=== PATIENT | female | born 1985 | race Two or more races ===

== ENCOUNTER 2018-12-04 11:22 | Inpatient (IN) | payer MEDICAID ==
[~2018-12-04] VITALS: Ht 149.9 cm; Wt 67.1 kg
[2018-12-04 12:07] VITALS: BP 126/64
[2018-12-04] MEDS ORDERED: PREN1TAB58 PO (12:13)
[2018-12-04] MEDS ORDERED: IV RINGERS,LACTATED 1000ML 1,000 ML IV PRN (12:15)
[2018-12-04 12:52] LABS: BILIRUBIN,URINE NEGATIVE (NEG); CLARITY,URINE CLEAR; COLOR,URINE YELLOW; NITRITE,URINE NEGATIVE (NEG); PROTEIN,URINE NEGATIVE (NEG-TRACE); UROBILINOGEN,URINE 0.2 mg/dL (0.2 mg/dL)
[2018-12-04 13:03] LABS: AMPHETAMINE/METHAMPHETAMINE NEG (NEG); BARBITURATES NEG (NEG); BENZODIAZEPINES NEG (NEG); CANNABINOIDS NEG (NEG); COCAINE NEG (NEG); METHADONE NEG (NEG); OPIATES NEG (NEG); PHENCYCLIDINE NEG (NEG)
[2018-12-04 13:20] LABS: SQUAMOUS EPITHELIAL CELL,UR FEW /LPF
[2018-12-04 13:21] LABS: BACTERIA,URINE FEW /HPF (0-FEW); RBC,URINE OCC /HPF (0-2)
--- NOTE | 2018-12-04 13:32 | PDOC1 ---
OB - History Hx of Present Care: Good Care Ultrasounds: Normal mid trimester US Obstetrical Complications: None Medical Complications: None Past Family/Social History * Past Medical, Surgical, Family and Obstetric Histories reviewed from chart. Rubella: Immune RPR/VDRL: Negative GBS Status: Negative HBsAG: Negative OB - Chief Complaint & HPI Date of Admission: Date of Admission: Dec 04, 2018 at 11:22 Chief Complaint/History : 3 Para: 2 EGA: 39 Reason for admission: active labor Admission Nurse Assessment Rev: Yes OB - Admission Exam Physical Exam HEENT: Normal Heart: Regular Rate Lungs: Clear Abdomen: Gravid, Non tender, Soft Extremities: Edema Reflexes: Normal Cervical Dilatation: 3cm Effacement: Other (90%) Station: -1 Membranes: Intact Heart Rate: Normal Accelerations: Accelerations Present Contractions on Admission: < 5 Minutes Apart Intensity: Moderate Text A: 39 wks IUP Active labor P: Admit for labor management. HOSSEIN NORIEGA Jr, MD Dec 04, 2018 13:32
[2018-12-04] MEDS ORDERED: AMPICILLIN SODIUM 2 GM in IV NORMAL SALINE 100ML 100 ML IV ONE (14:00)
[2018-12-04] MEDS ORDERED: IV RINGERS,LACTATED 1000ML 1,000 ML IV SCH (14:04)
[2018-12-04] MEDS ORDERED: TERBUTALINE 1 MG/ML VIAL. SQ PRN (14:15)
[2018-12-04] MEDS ORDERED: 0.9 % SODIUM CHLORIDE 10 ML DISP.SYRIN. IV PRN ×2 (14:15→18:00)
[2018-12-04] MEDS ORDERED: LIDOCAINE 1% PF 30 ML VIAL. INJ PRN (14:15)
[2018-12-04] MEDS ORDERED: fentaNYL PF VIAL 100 MCG/2 ML VIAL IV PRN (14:15)
[2018-12-04] MEDS ORDERED: ONDANSETRON PF 4 MG/2 ML VIAL. IV PRN (14:15)
[2018-12-04] MEDS ORDERED: OXYTOCIN 30 UNIT/500 ML PREMIX 500 ML IV PRN ×2 (14:15→18:00)
[2018-12-04 14:30] LABS: BASO # 0.1 x10^3/uL (0.0-0.2); BASO % 1 % (0-3); EOS # 0.1 x10^3/uL (0.0-0.7); EOS % 1 % (0-3); HEMOGLOBIN 12.5 g/dL (12.0-15.5); LYMPH # 2.1 x10^3/uL (1.0-4.8); LYMPH % 17 % (24-48); MEAN CORPUSCULAR HEMOGLOBIN 29 pg (25-35); MEAN CORPUSCULAR HGB CONC 33 g/dL (31-37); MEAN CORPUSCULAR VOLUME 89 fL (79-100); MONO # 0.6 x10^3/uL (0.0-1.1); MONO % 5 % (0-9); NEUT # 9.8 x10^3uL (1.8-7.7); NEUT % 77 % (31-73); PLATELET COUNT 274 x10^3/uL (140-400); RED BLOOD COUNT 4.29 x10^6/uL (3.50-5.40); RED CELL DISTRIBUTION WIDTH 14.1 % (11.5-14.5); WHITE BLOOD COUNT 12.6 x10^3/uL (4.0-11.0)
--- NOTE | 2018-12-04 17:53 | PDOC ---
VAGINAL DELIVERY DATE DATE: 12/04/18 TIME: 17:51 : 3 Para: 3 EGA: 39 VAGINAL DELIVERY: VTX VACCUM ASSISTED: No PLACENTA: Spontaneous 8/9 SEX: Female WEIGHT Weight [ 5 lbs. 13 oz. ] Nuchal Cord: Yes Amniotic Fluid: Clear PAIN: Natural EPISIOTOMY: No EXTENSION: Yes (2nd degree midline laceration) REPAIRED WITH 2-0 vicryl EBL 300 ml COMPLICATIONS none CONDITION pt. stable Signs of Intrauterine Infectio: None Shoulder Dystocia: No HOSSEIN NORIEGA Jr, MD Dec 04, 2018 17:53
[2018-12-04] MEDS ORDERED: SIMETHICONE 80 MG TAB.CHEW PO PRN (18:00)
[2018-12-04] MEDS ORDERED: MMR per PROTOCOL. MC PRN (18:00)
[2018-12-04] MEDS ORDERED: oxyCODONE/APAP 5/325 1 TAB TABLET PO PRN (18:00)
[2018-12-04] MEDS ORDERED: MAGNESIUM HYDROXIDE 2,400 MG/30 ML ORAL.SUSP. PO PRN (18:00)
[2018-12-04] MEDS ORDERED: MAG HYDROX/ALUMINUM HYD/SIMETH 30 ML ORAL.SUSP PO PRN (18:00)
[2018-12-04] MEDS ORDERED: HYDROCORTISONE 1% TOPICAL OINTMENT 30GM TUBE. TP PRN (18:00)
[2018-12-04] MEDS ORDERED: AMPICILLIN SODIUM 1 GM in IV NORMAL SALINE 50ML 50 ML IV SCH (18:00)
[2018-12-04] MEDS ORDERED: diphenhydrAMINE HCL 25 MG CAPSULE PO PRN (18:00)
[2018-12-04] MEDS ORDERED: ACETAMINOPHEN 325 MG TABLET. PO PRN (18:00)
[2018-12-04] MEDS ORDERED: ZOLPIDEM 5 MG TABLET. PO PRN (18:00)
[2018-12-04] MEDS ORDERED: BENZOCAINE 20% TOPICAL AEROSOL SPRAY 57GM CAN. TP PRN (18:00)
[2018-12-04] MEDS ORDERED: PHENYLEPH/MINERAL OIL/PETROLAT RECTAL OINTMENT 28GM TUBE. RC PRN (18:00)
[2018-12-04] MEDS: IBUPROFEN 400 MG TABLET. PO PRN (19:18)
[2018-12-04 22:55] VITALS: BP 121/62
[2018-12-05 00:10] VITALS: BP 99/54
[2018-12-05 03:00] VITALS: BP 97/55
[2018-12-05 06:00] VITALS: BP 104/73
[2018-12-05 07:41] LABS: BASO # 0.1 x10^3/uL (0.0-0.2); BASO % 1 % (0-3); EOS # 0.1 x10^3/uL (0.0-0.7); EOS % 1 % (0-3); HEMATOCRIT 31.4 % (36.0-47.0); HEMOGLOBIN 10.2 g/dL (12.0-15.5); LYMPH # 3.2 x10^3/uL (1.0-4.8); LYMPH % 21 % (24-48); MEAN CORPUSCULAR HEMOGLOBIN 29 pg (25-35); MEAN CORPUSCULAR HGB CONC 33 g/dL (31-37); MEAN CORPUSCULAR VOLUME 89 fL (79-100); MONO # 0.7 x10^3/uL (0.0-1.1); MONO % 5 % (0-9); NEUT # 10.9 x10^3uL (1.8-7.7); NEUT % 73 % (31-73); PLATELET COUNT 237 x10^3/uL (140-400); RED BLOOD COUNT 3.51 x10^6/uL (3.50-5.40); WHITE BLOOD COUNT 15.1 x10^3/uL (4.0-11.0)
[2018-12-05] MEDS: DOCUSATE SODIUM 100 MG CAPSULE. PO PRN ×2 (10:12→17:05)
[2018-12-05] MEDS: FERROUS SULFATE 325 MG TABLET. PO SCH ×2 (10:12→17:05)
[2018-12-05] MEDS: IBUPROFEN 400 MG TABLET. PO PRN ×2 (10:13→17:05)
[2018-12-05 11:15] VITALS: BP 103/65
--- NOTE | 2018-12-05 14:00 | PDOC ---
Provider Note Provider Note No Complaints VV Uterus NTTP FU in AM THOR TUCKER MD Dec 05, 2018 14:00
[2018-12-05 15:20] VITALS: BP 105/61
[2018-12-05 19:30] VITALS: BP 114/69
[2018-12-06 05:30] VITALS: BP 113/71
[2018-12-06] MEDS: IBUPROFEN 400 MG TABLET. PO PRN (05:48)
[2018-12-06] MEDS: FERROUS SULFATE 325 MG TABLET. PO SCH (08:00)
--- NOTE | 2018-12-06 10:44 | NUR ---
Feosul not given due to Hct 31.4
[2018-12-06 11:00] VITALS: BP 117/67
--- NOTE | 2018-12-06 12:26 | PDOC3 ---
OB DISCHARGE SUMMARY DATE OF ADMISSION: 12/04/18 DATE OF DISCHARGE: 12/06/18 REASON FOR ADMISSION: Onset of labor INTRAPARTUM PROCEDURES: Spontanous Vag Deliv DISCHARGE DIAGNOSIS: Term Delivered DISCHARGE INFORMATION: Activity (ad jonah), Diet (regular), Instructions (pelvic rest x 6 wks) HOSPITAL COURSE Term gestation delivered vaginally without complications. HOSSEIN NORIEGA Jr, MD Dec 06, 2018 12:26
--- NOTE | 2018-12-06 12:27 | NUR ---
SS following up with referral regarding "recent move from [facility], please assess for resource needs." SS met with infants mother to assess circumstances surrounding the referral. [employer] cloth folder hand was used. Infants mother reported that she lives with a friend and the friend provides support. She reported that she works at [employer] and pays her friend rent. Infants mother reported that she has a car seat that her friend is bringing to the hospital and has supplies at home. SS provided infants mother with information regarding WIC, [facility] services in the [facility], and [employer] for case management in the community. Infants mother agreed to [employer] referral and provided SS with contact information. SS provided infants mother with information on [facility] and [facility]. Infants mother requested information on early childhood. SS provided infants mother with contact information for [employer] and explained how Medicaid will help provide payment for daycare. SS notified infants mother to contact the number on the back of infants Medicaid card and they will be able to help assist her with childcare resources. Infant's mother denied history of substance use and behavioral health. UDS in chart was negative. SS phoned and faxed referral to [employer], ; fax [phone]. Pt did not meet criteria for DCF hotline report at this time. Infant RN notified.
[2018-12-06] MEDS ORDERED: IBUP-1027 PO (12:28)
--- NOTE | 2018-12-06 12:29 | DISCH ---
DISCHARGE INSTRUCTIONS Condition on Discharge Condition on Discharge: Stable Activity After Discharge Activity Instructions for Disc: Activity as tolerated Lifting Instructions after Dis: No heavy lifting Driving Instructions after Dis: Do not drive today Diet after Discharge Diet after Discharge: Regular Contacting the DRJoel after DC Call your doctor for: Concerns you may have Follow-Up Follow up with: Fang in 6 wks. HOSSEIN NORIEGA Jr, MD Dec 06, 2018 12:29
[2018-12-06 13:30] VITALS: BP 120/84
--- NOTE | 2018-12-06 16:30 | NUR ---
Discharge Note: YOMI GONZALEZ Y5 [place] Discharge instructions and discharge home medications reviewed with Patient and a copy given. All questions have been answered and understanding verbalized. The following instructions and handouts were given: Medications and follow up care. Patient discharged to Home with Self- Care via Private Vehicle.
== END 2018-12-06 16:58 | disposition home or self-care (01) | DRG 807 ==
LOC: 3 SO LND 11:22 → OBSVTOIN 11:22 → 3 NORTH 22:50
PROVIDERS: ADMIT Obstetrics & Gynecology; ATTEND Obstetrics & Gynecology
PROC: 10E0XZZ Delivery of Products of Conception, External Approach (ICD-10-PCS; principal; 2018-12-04)
PROC: 0KQM0ZZ Repair Perineum Muscle, Open Approach (ICD-10-PCS; 2018-12-04)
DX: O69.81X0 Labor and delivery complicated by cord around neck, without compression, not applicable or unspecified (principal); Z37.0 Single live birth; O70.1 Second degree perineal laceration during delivery; Z3A.39 39 weeks gestation of pregnancy
CPT/HCPCS: 36415; 80307; 81001; 85025; 86592; 86850; 86900; 86901; J0290; J2590; J3010; J7120